=== PATIENT | male | born 1985 | race Two or more races ===

== ENCOUNTER → 2024-08-04 | Emergency (ER) | payer OTHER ==
[~2024-08-04] VITALS: Ht 185.4 cm; Wt 108.9 kg
[~2024-08-04] MED LIST: AMOX1TAB5 PO; TOPROL XL25 M1 PO
== END | disposition left against medical advice (07) ==
LOC: ER 16:35
DX: Z53.21 Procedure and treatment not carried out due to patient leaving prior to being seen by health care provider (principal)